=== PATIENT | male | born 1970 | race Two or more races ===

== ENCOUNTER 2025-04-27 08:00 | Outpatient (CLI) | payer OTHER ==
[~2025-04-27] VITALS: Ht 177.8 cm; Wt 94.8 kg
[~2025-04-27 08:00] MED LIST: ALLEGRA ALLERG180 MG PO; ASA81 MG; DEPO-MEDROL40 MG/ML IM; FLONASE16 GM NS; HYDROCHLOROTH12.5 MG; IRBESARTAN75 MG; LIPITOR20 MG; MOTRIN800 MG PO; NORFLEX100MG PO; PRADAXA75 MG; RELAGESIC TABLE1 TAB PO; SORBUTUSS LIQU473 ML PO; TESSALON200 MG PO; TOPROL XL50 M1; TRAMADOL HCL50 MG PO; TRILIPIX45 MG; XYLOCAINE-MP10 MG/ML IM; ZETIA10 MG
[2025-04-27 10:51] LABS: BASO % 0.3 % (0.1-1.2); EOS # 0.07 (0.04-0.54); EOS % 1.2 % (0.7-7.0); HEMATOCRIT 45.1 % (40.1-51.0); LYMPH # 2.69 (1.18-3.74); LYMPH % 44.7 % (19.3-53.1); MEAN CORPUSCULAR HEMOGLOBIN 28.9 pg (25.6-32.2); MONO # 0.52 (0.24-0.82); MONO % 8.6 % (4.7-12.5); NEUT # 2.71 (1.56-6.13); PLATELET COUNT 263 K/uL (163-369); RED BLOOD COUNT 5.19 M/uL (4.63-6.08)
[2025-04-27 11:01] LABS: COVID-19 AG NEGATIVE (NEGATIVE)
[2025-04-27 11:09] LABS: INR 1.02; PARTIAL THROMBOPLASTIN TIME 24.1 SECONDS (22.0-34.0); PROTHROMBIN TIME 11.1 SECONDS (9.0-11.5)
[2025-04-27 11:26] LABS: URINE APPEARANCE Clear; URINE BILIRRUBIN Negative (NEGATIVE); URINE BLOOD Negative; URINE COLOR Yellow; URINE GLUCOSE Negative (NEGATIVE); URINE KETONE Negative (NEGATIVE); URINE LEUKOCYTE Negative; URINE NITRATE Negative; URINE PROTEIN Negative (NEGATIVE); URINE UROBILINOGEN 0.2 E.U./dl
[2025-04-27 11:32] LABS: URINE BACTERIA 4.8 uL (0.0-1933); URINE RBC 3.5 uL (0.0-20.8)
[2025-04-27 11:35] LABS: URINE EPITHELIAL CELLS 0.9 uL (0.0-38.8); URINE WBC 1.1 uL (0.0-23.2)
[2025-04-27] MEDS ORDERED: HYDROCHLOROTHIA25 MG PO (11:50)
[2025-04-27] MEDS ORDERED: ZESTRIL10 M1 PO (11:51)
[2025-04-27] MEDS ORDERED: LIPOFEN150 MG PO (11:51)
[2025-04-27] MEDS ORDERED: TAMS0.4C PO (11:51)
[2025-04-27] MEDS ORDERED: METFORMIN HCL500 M3 PO (11:51)
[2025-04-27 11:52] VITALS: BP 125/80
[2025-04-27 12:09] LABS: ALBUMIN 4.4 gm/dL (3.4-5.0); BILIRUBIN TOTAL 0.67 mg/dL (0.3-1.2); CALCIUM 9.7 mg/dL (8.5-10.1); CREATININE SERUM 0.91 mg/dL (0.70-1.30); GFR 86.18; GLOBULINA 3.6 G/DL (2.4-3.5); POTASSIUM 3.88 mEq/L (3.5-5.1)
[2025-05-05] MEDS ORDERED: PHENAZOPYRIDINE HCL 100 MG TABLET PO ONE (14:15)
[2025-05-05] MEDS ORDERED: TAMSULOSIN HCL 0.4 MG CAP PO ONE (14:15)
[2025-06-08] MEDS ORDERED: LIPITOR40 MG PO (10:18)
== END 2025-04-27 08:01 | disposition home or self-care (01) ==
LOC: LAB 08:00 → CIR.AMB 09:30 → EDSTATUS 09:30 → CIR.AMB 05-05 09:30
PROVIDERS: ATTEND Urology
DX: N40.1 Benign prostatic hyperplasia with lower urinary tract symptoms (principal); N40.0 Benign prostatic hyperplasia without lower urinary tract symptoms; R33.9 Retention of urine, unspecified

== ENCOUNTER 2025-06-16 05:10 | Inpatient (IN) | payer OTHER ==
[2025-06-08 09:59] LABS: BASO % 0.5 % (0.1-1.2); EOS # 0.06 (0.04-0.54); EOS % 0.9 % (0.7-7.0); LYMPH # 2.32 (1.18-3.74); LYMPH % 36.5 % (19.3-53.1); MEAN PLATELET VOLUME 10.80 fl (9.4-12.4); MONO # 0.53 (0.24-0.82); MONO % 8.3 % (4.7-12.5); NEUT # 3.41 (1.56-6.13); NEUT % 53.6 % (34.0-71.1); RED CELL DISTRIBUTION WIDTH 14.2 % (11.6-14.4)
[2025-06-08 10:01] LABS: URINE APPEARANCE Clear; URINE BILIRRUBIN Negative (NEGATIVE); URINE BLOOD Negative; URINE COLOR Yellow; URINE GLUCOSE Negative (NEGATIVE); URINE KETONE Trace (NEGATIVE); URINE LEUKOCYTE Negative; URINE NITRATE Negative; URINE PROTEIN Negative (NEGATIVE); URINE UROBILINOGEN 0.2 E.U./dl
[2025-06-08 10:02] LABS: URINE BACTERIA 4.7 uL (0.0-1933); URINE RBC 4.6 uL (0.0-20.8)
[2025-06-08 10:18] LABS: INR 0.99
[2025-06-08 10:21] VITALS: BP 132/89
[2025-06-08 10:22] LABS: COVID-19 AG NEGATIVE (NEGATIVE)
[2025-06-08 10:30] LABS: URINE CAST 0.00 uL (0.0-1.40); URINE EPITHELIAL CELLS 1.2 uL (0.0-38.8); URINE WBC 1.3 uL (0.0-23.2)
[2025-06-08 10:45] LABS: BUN CREA RATIO 22.0 (7.0-25.0); CREATININE SERUM 0.92 mg/dL (0.70-1.30); GFR 85.1; GLUCOSE FASTING 119.0 mg/dL (65-100); OSMOLALITY SERUM 287.0 MOSM/KG (275-295)
[~2025-06-16] VITALS: Ht 177.8 cm; Wt 94.8 kg
[~2025-06-16 05:10] MED LIST changes: +HYDROCHLOROTHIA25 MG PO; +LIPITOR40 MG PO; +LIPOFEN150 MG PO; +METFORMIN HCL500 M3 PO; +TAMS0.4C PO; +ZESTRIL10 M1 PO
[2025-06-16] MEDS ORDERED: GENTAMICIN SULFATE 40 MG/ML VIAL IV ONE (09:00)
[2025-06-16] MEDS ORDERED: CHLORHEXIDINE GLUCONATE 120 ML BOTTLE TOP ONE (09:00)
[2025-06-16] MEDS ORDERED: ONDANSETRON HCL 2 MG/ML VIAL IV PRN (09:45)
[2025-06-16] MEDS ORDERED: SODIUM CHLORIDE 0.45 % 1,000 ML IV SCH (09:47)
[2025-06-16] MEDS ORDERED: ACETAMINOPHEN WITH CODEINE 1 UDTAB TABLET PO PRN (10:00)
[2025-06-16] MEDS ORDERED: PHENAZOPYRIDINE HCL 100 MG TABLET PO SCH (13:00)
[2025-06-16 17:30] VITALS: BP 118/71; O2SAT 98
[2025-06-17 01:27] VITALS: BP 110/68; O2SAT 100
[2025-06-17 09:00] VITALS: BP 129/78; O2SAT 96
[2025-06-17] MEDS ORDERED: GENTAMICIN SULFATE 40 MG/ML VIAL IV SCH (09:00)
[2025-06-17] MEDS ORDERED: TAMSULOSIN HCL 0.4 MG CAP PO SCH (09:00)
[2025-06-17] MEDS ORDERED: LISINOPRIL 10 MG TABLET PO SCH (09:00)
[2025-06-17 09:31] LABS: BUN CREA RATIO 14.0 (7.0-25.0); CREATININE SERUM 0.72 mg/dL (0.70-1.30); GFR 112.93; GLUCOSE FASTING 103.0 mg/dL (65-100); OSMOLALITY SERUM 275.0 MOSM/KG (275-295)
[2025-06-17 12:47] LABS: BASO % 0.1 % (0.1-1.2); EOS # 0.08 (0.04-0.54); EOS % 0.8 % (0.7-7.0); LYMPH # 2.22 (1.18-3.74); LYMPH % 22.1 % (19.3-53.1); MEAN PLATELET VOLUME 10.90 fl (9.4-12.4); MONO # 1.20 (0.24-0.82); MONO % 12.0 % (4.7-12.5); NEUT # 6.50 (1.56-6.13); NEUT % 64.8 % (34.0-71.1); RED CELL DISTRIBUTION WIDTH 13.7 % (11.6-14.4)
== END 2025-06-17 15:34 | disposition home or self-care (01) | DRG 714 ==
LOC: CIR.AMB 05:10 → O/R 13:04 → SURH 13:04
PROVIDERS: ADMIT Urology; ATTEND Urology
PROC: 0VT08ZZ Resection of Prostate, Via Natural or Artificial Opening Endoscopic (ICD-10-PCS; principal; 2025-06-16 07:00)
DX: N40.1 Benign prostatic hyperplasia with lower urinary tract symptoms (principal); R33.9 Retention of urine, unspecified